=== PATIENT | female | born 1995 | race American Indian/Alaskan Native ===

== ENCOUNTER 2017-08-24 22:19 | Emergency (ER) | payer BC, MEDICAID ==
[2017-08-24 23:02] LABS: Basophils % (Auto) 0.7 % (0.0-1.8); Eosinophils % (Auto) 1.8 % (0.0-4.3); Hematocrit 43.4 % (30.3-42.9); Hemoglobin 14.4 gm/dl (10.1-14.3); Mean Corpuscular HGB Conc 33 % (30-34); Mean Corpuscular Hemoglobin 28 pg (28-32); Mean Corpuscular Volume 84 fl (79-97); Platelet Count 233 K/mm3 (140-440); Red Blood Count 5.19 M/mm3 (3.65-5.03); Red Cell Distribution Width 14.1 % (13.2-15.2); White Blood Count 8.1 K/mm3 (4.5-11.0)
[2017-08-24 23:22] LABS: Anion Gap 17 mmol/L; BUN/Creatinine Ratio 17; Blood Urea Nitrogen 12 mg/dL (7-17); Calcium 9.7 mg/dL (8.4-10.2); Carbon Dioxide 25 mmol/L (22-30); Chloride 105.1 mmol/L (98-107); Glucose 93 mg/dL (65-100); Potassium 4.3 mmol/L (3.6-5.0); Sodium 143 mmol/L (137-145)
[2017-08-24 23:35] LABS: Bacteria,Urine 1+ /HPF (Negative); Bilirubin,Urine NEG (Negative); Blood,Urine NEG (Negative); Ketones,Urine NEG (Negative); Leukocyte Esterase,Urine LG (Negative); Mucus,Urine FEW /HPF; Nitrite,Urine NEG (Negative); Protein,Urine <15 mg/dL mg/dL (Negative); Urobilinogen,Urine < 2.0 mg/dL (<2.0)
--- NOTE | 2017-08-25 02:56 | Emergency Department Report ---
HPI - General Chief Complaint: Chest Pain Time Seen by Provider: 08/25/17 01:41 - HPI HPI: Patient reports that she went to urgent care for back pain and they started her on ciprofloxacin after obtaining a urinalysis and results positive for urinary tract infection. She said she is on ciprofloxacin for 7 days and her lost dose will be Sunday which is 08/26/2017. She says she's been taking the medication twice a day but her back is still hurting. She denies any injury to her back. She is also complaining the chest pain located into mid chest area that feels sharp and 9 out of 10. Denies any radiation of chest pain. No previous episode of chest pain. Denies any shortness of breath. Denies any fever but reports chills. Denies any urinary burning frequency or urgency. Denies any vaginal discharge. Patient has history of high blood pressure and her blood pressure is 141/101 she said she was on blood pressure medication and past but her doctor took her off the medication because her blood pressure was fine. She denies any flank pain she said the pain is in her lower back on both sides. Denies any nausea or vomiting. Patient said that she had took ciprofloxacin and past and it made her broke out and that she is having a rash that started now ,with itchiness and she thinks it's from the ciprofloxacin that they gave her. This is not listed on her allergy list. Patient denies any history of heart problems. Denies any numbness or tickling to extremities. Denies any loss of bowel or bladder function. Nothing makes back pain better nothing makes it worse. She says she's been taking [id number] pain medication but it's not help in her pain. Patient is eating and drinking well. ED Past Medical Hx - Past Medical History Previous Medical History?: Yes Hx Hypertension: Yes - Surgical History Past Surgical History?: Yes Hx Cholecystectomy: Yes Additional Surgical History: tonsillectomy - Family History Family history: hypertension - Social History Smoking Status: Never Smoker Substance Use Type: None - Medications Home Medications: Home Medications Medication Instructions Recorded Confirmed Last Taken Type Hydrochlorothiazide [Hctz] 12.5 mg PO QDAY 06/11/13 11/06/13 11/06/13 06:30 History Ondansetron [Zofran] 4 mg PO Q6HR PRN #12 tablet 06/12/13 11/06/13 10/07/13 Rx Norethindrone AC-Eth Estradiol 1 tab PO DAILY 11/06/13 11/06/13 11/06/13 06:30 History [Microgestin] Ondansetron [Zofran Odt] 4 mg PO Q6H PRN #8 tab.rapdis 11/07/13 Unknown Rx Oxycodone HCl/Acetaminophen 1 each PO Q4-6H PRN #20 tablet 11/07/13 Unknown Rx [Percocet 10-325 mg] Acetaminophen/Codeine [Tylenol #3] 1 tab PO Q6H PRN #15 tab 02/02/16 Unknown Rx Cyclobenzaprine HCl [Flexeril 5 MG 5 mg PO Q8HR PRN #15 tablet 02/02/16 Unknown Rx TAB] metroNIDAZOLE [Flagyl] 500 mg PO Q12HR #14 tab 03/28/16 Unknown Rx Nitrofurantoin Monohyd/M-Cryst 100 mg PO Q12H 7 Days #14 capsule 08/25/17 Unknown Rx [Macrobid 100 mg Capsule] traMADol [Ultram] 50 mg PO Q6HR PRN 3 Days #12 tablet 08/25/17 Unknown Rx ED Review of Systems ROS: Stated complaint: CP/BACK PAIN Other details as noted in HPI Comment: All other systems reviewed and negative Constitutional: chills. denies: malaise, weakness Eyes: denies: eye pain, eye discharge ENT: denies: ear pain, throat pain, congestion Respiratory: no symptoms reported Cardiovascular: chest pain. denies: palpitations, dyspnea on exertion, orthopnea, edema, syncope, paroxysmal nocturnal dyspnea Gastrointestinal: denies: abdominal pain, nausea, vomiting, diarrhea, constipation Genitourinary: denies: urgency, dysuria, frequency, hematuria, discharge, abnormal menses, dyspareunia Musculoskeletal: back pain. denies: joint swelling, arthralgia, myalgia Skin: denies: rash Neurological: denies: headache, weakness, numbness, paresthesias, confusion, abnormal gait, vertigo Physical Exam - Physical Exam Vital Signs: Vital Signs 08/24/17 22:34 Temperature 99.1 F Pulse Rate 84 Respiratory 18 Rate Blood Pressure 141/101 O2 Sat by Pulse 97 Oximetry Vital Signs 08/24/17 08/25/17 22:34 03:22 Temperature 99.1 F Pulse Rate 84 Respiratory 18 18 Rate Blood Pressure 141/101 O2 Sat by Pulse 97 Oximetry Vital Signs 08/24/17 08/25/17 08/25/17 22:34 03:22 04:00 Temperature 99.1 F Pulse Rate 84 Respiratory 18 18 Rate Blood Pressure 141/101 Blood Pressure 138/90 [Left] O2 Sat by Pulse 97 Oximetry General: This is a 22-year-old female well-nourished well-developed in no acute distress. Physical Exam: Head: Normocephalic, atraumatic, no abrasion, no bruising and no contusion. Eyes: Biateral pupils equal and reactive to light, bilateral EOM intact.. Bilateral conjunctival and sclera without injection, normal accommodation. No nystagmus Ears: Bilateral TMs pearly painting, bilateral nasal mucosa normal without any drainage. No maxillary or frontal sinus tenderness. No mastoid bone tenderness. Bilateral tract is nontender to palpate Mouth: Moist, no pharyngeal exudate or erythema. Uvula is midline and tongue is normal. Oral airways patent. Neck: Supple, No Cervical adenopathy, full range of motion and no C-spine tenderness. No swelling or tracheal deviation normal reflexes Cardiovascular: S1, S2. Regular rate and rhythm. No murmur. Capillary refill is less then 3 seconds. Lungs: Clear to auscultate bilaterally. No rhonchi, wheezes or rales. Positive midsternal chest wall tenderness. No ecchymosis or erythema to chest wall. No crepitus. Abdomen: Soft, nontender to palpate in all quadrants. No guarding or rebound tenderness. Negative CVA tenderness bilaterally. No hernia, no mass. MSK: Strength 5/5 in all extremities. No joint deformity or crepitus. Normal inspection. Full range of motion to all extremities Extremities: No clubbing, cyanosis or edema. +2 pulses. No neurovascular compromise Skin: Clean, dry and intact. No rash or lesions. Neurological: GCS at 15, Pt is alert and oriented 3 speech is clear period. Bilateral hand suspender maker strong and equal. Normal gait. Negative Romberg and no pronator drift. Normal Reflexes. No motor or sensory deficit Back: No vertebral tenderness, no paraspinal tenderness. The bend over and touch his toes without any difficulties. Ambulates without any difficulties. Psych: Normal mood and behavior. ED Course Vital Signs 08/24/17 22:34 Temperature 99.1 F Pulse Rate 84 Respiratory 18 Rate Blood Pressure 141/101 O2 Sat by Pulse 97 Oximetry Vital Signs 08/24/17 08/25/17 08/25/17 22:34 03:22 04:00 Temperature 99.1 F Pulse Rate 84 Respiratory 18 18 Rate Blood Pressure 141/101 Blood Pressure 138/90 [Left] O2 Sat by Pulse 97 Oximetry - Reevaluation(s) Reevaluation #1: 08/25/17 03:56 Patient lab work revealed that she has urinary tract infection positive bacteria and positive white count positive leukocyte Estrace. Urine is also contaminated with epithelial cells. Reports that that urine is cloudy. Patient white count is normal and her hemoglobin is normal. Chemistry to include troponin is normal. Patient received hydrocodone 5/325 mg 2 tablets emergency room for back pain and chest wall pain. She received clindamycin 600 mg IM for urinary tract infection because she is allergic to penicillin. Patient also given Benadryl 50 mg by mouth for itching and. I discussed with her that she should not take Cipro or any floor, quinolones. ED Medical Decision Making - Lab Data Result diagrams: 08/24/17 22:48 08/24/17 22:48 Lab Results 08/24/17 08/24/17 08/24/17 Range/Units 22:48 22:48 23:11 WBC 8.1 (4.5-11.0) K/mm3 RBC 5.19 H (3.65-5.03) M/mm3 Hgb 14.4 H (10.1-14.3) gm/dl Hct 43.4 H (30.3-42.9) % MCV 84 (79-97) fl MCH 28 (28-32) pg MCHC 33 (30-34) % RDW 14.1 (13.2-15.2) % Plt Count 233 (140-440) K/mm3 Lymph % (Auto) 41.3 H (13.4-35.0) % [place] % (Auto) 5.4 (0.0-7.3) % Eos % (Auto) 1.8 (0.0-4.3) % Baso % (Auto) 0.7 (0.0-1.8) % Lymph # 3.3 (1.2-5.4) K/mm3 [place] # 0.4 (0.0-0.8) K/mm3 Eos # 0.1 (0.0-0.4) K/mm3 Baso # 0.1 (0.0-0.1) K/mm3 Seg Neutrophils % 50.8 (40.0-70.0) % Seg Neutrophils # 4.1 (1.8-7.7) K/mm3 Sodium 143 (137-145) mmol/L Potassium 4.3 (3.6-5.0) mmol/L Chloride 105.1 (98-107) mmol/L Carbon Dioxide 25 (22-30) mmol/L Anion Gap 17 mmol/L BUN 12 (7-17) mg/dL Creatinine 0.7 (0.7-1.2) mg/dL Estimated GFR > 60 ml/min BUN/Creatinine Ratio 17 % Glucose 93 (65-100) mg/dL Calcium 9.7 (8.4-10.2) mg/dL Troponin T < 0.010 (0.00-0.029) ng/mL Urine Color Yellow (Yellow) Urine Turbidity Slightly cloudy (Clear) Urine pH 6.0 (5.0-7.0) Ur Specific [place] 1.019 (1.003-1.030) Urine Protein <15 mg/dl (Negative) mg/dL Urine Glucose (UA) Neg (Negative) mg/dL Urine Ketones Neg (Negative) mg/dL Urine Blood Neg (Negative) Urine Nitrite Neg (Negative) Urine Bilirubin Neg (Negative) Urine Urobilinogen < 2.0 (<2.0) mg/dL Ur Leukocyte Esterase Lg (Negative) Urine WBC (Auto) 25.0 H (0.0-6.0) /HPF Urine RBC (Auto) 4.0 (0.0-6.0) /HPF U Epithel Cells (Auto) 14.0 H (0-13.0) /HPF Urine Bacteria (Auto) 1+ (Negative) /HPF Urine Mucus Few /HPF 08/25/17 Range/Units 01:06 WBC (4.5-11.0) K/mm3 RBC (3.65-5.03) M/mm3 Hgb (10.1-14.3) gm/dl Hct (30.3-42.9) % MCV (79-97) fl MCH (28-32) pg MCHC (30-34) % RDW (13.2-15.2) % Plt Count (140-440) K/mm3 Lymph % (Auto) (13.4-35.0) % [place] % (Auto) (0.0-7.3) % Eos % (Auto) (0.0-4.3) % Baso % (Auto) (0.0-1.8) % Lymph # (1.2-5.4) K/mm3 [place] # (0.0-0.8) K/mm3 Eos # (0.0-0.4) K/mm3 Baso # (0.0-0.1) K/mm3 Seg Neutrophils % (40.0-70.0) % Seg Neutrophils # (1.8-7.7) K/mm3 Sodium (137-145) mmol/L Potassium (3.6-5.0) mmol/L Chloride (98-107) mmol/L Carbon Dioxide (22-30) mmol/L Anion Gap mmol/L BUN (7-17) mg/dL Creatinine (0.7-1.2) mg/dL Estimated GFR ml/min BUN/Creatinine Ratio % Glucose (65-100) mg/dL Calcium (8.4-10.2) mg/dL Troponin T < 0.010 (0.00-0.029) ng/mL Urine Color (Yellow) Urine Turbidity (Clear) Urine pH (5.0-7.0) Ur Specific [place] (1.003-1.030) Urine Protein (Negative) mg/dL Urine Glucose (UA) (Negative) mg/dL Urine Ketones (Negative) mg/dL Urine Blood (Negative) Urine Nitrite (Negative) Urine Bilirubin (Negative) Urine Urobilinogen (<2.0) mg/dL Ur Leukocyte Esterase (Negative) Urine WBC (Auto) (0.0-6.0) /HPF Urine RBC (Auto) (0.0-6.0) /HPF U Epithel Cells (Auto) (0-13.0) /HPF Urine Bacteria (Auto) (Negative) /HPF Urine Mucus /HPF Urine culture sent and pending - EKG Data -: EKG Interpreted by Me (read by attending physician in ED) EKG shows normal: sinus rhythm (sinus rhythm at 70 bpm) Rate: normal - EKG Data Interpretation: no acute changes - Medical Decision Making ED course: Patient had complained of chest pain to mid chest area. She denies that she had any injuries. She is also complaining of lower back pain on both sides is having ongoing since she's been diagnosed with urinary tract infection this past Sunday. She says she was placed on ciprofloxacin and she doesn't think this working because she is still having back pain. She says she was treated at an urgent care clinic and they gave her Cipro to take twice a day for 7 days and she has been taking this medication and will be completed on . Patient said that she broke out into a rash previously when she took Cipro but she did not list it as an allergy and now complaining itching and thinks she has a rash on her face. Physical findings for clear face without any rash to skin. I discussed patient that she should list ciprofloxacin and other fluoroquinolones as allergy from now on. Patient urinalysis revealed that she has positive bacteria, positive white blood cells and large amount of leukocyte Estrace with cloudy urine. Patient did have epithelial cell in her urine which suggests contamination. She is not having any urinary burning frequency or urgency but she has back pain. Patient does not have any CVA tenderness and is not having any nausea or vomiting. She has low-grade temp of 99.1 in triage area. Patient white count is 8.1, chemistry to include troponin is normal, EKG sinus rhythm at [address] abnormalities. Patient with chest wall tenderness. I discussed patient her lab results and her EKG results and I told her that typically with tenderness to palpate the chest wall and given her age without any history of cardiac disease she is at low risk although she has hypertension. I discussed with her that her presentation with chest pain and based on my physical findings it is inflammation of chest wall which is costochondritis. I discussed patient that she needs to stop Cipro and I'll start her on Macrobid for urinary tract infection. Patient given Stites 5/ 325 mg 2 tablets in the emergency room for pain which relieved her pain, she was given clindamycin 600 mg IM for UTI and Benadryl 50 mg by mouth for itching into face. Patient says she felt better I discussed the patient that she needs to follow up with her primary care physician which she does have one on 2016 follow-up UTI and costochondritis. 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 Patient orally challenge and emergency room and drank 480 cc of cranberry juice without any nausea or vomiting. Patient Unlikely to have pyelonephritis at this time but I told her if she developed nausea vomiting, fever, flank pain, abdominal pain to return to the hospital [facility] and I also told her if her chest pain does not resolve before she gets to see her primary care physician and she develop shortness of breath with that she needs to come back to the emergency room. Based on PERC rule patient has 0 risk for pulmonary embolism as she is not on control, no swelling to extremities, no recent long distance travel by car ear pain, no chronic diseases or recent surgery or immobilization. No shortness of breath. She is not tachycardic and her O2 sats normal. Patient has no history of blood clots or no family history of blood clots and no history of clotting disorder. Patient was nondistended discharge instruction and diagnosis along with treatment plan and discharged home with her family in stable condition with prescription for Macrobid, Zyrtec and naproxen. Critical care attestation.: If time is entered above; I have spent that time in minutes in the direct care of this critically ill patient, excluding procedure time. ED Disposition Clinical Impression: Acute cystitis without hematuria, Pruritus, Costochondritis, acute Back pain Qualifiers: Back pain location: low back pain Chronicity: unspecified Back pain laterality : bilateral Sciatica presence: without sciatica Qualified Code(s): M54.5 - Low back pain Disposition: - TO HOME OR SELFCARE Is pt being admited?: No Does the pt Need Aspirin: No Condition: Stable Instructions: Urinary Tract Infection in Women (ED), Costochondritis (ED), Acute Low Back Pain (ED) Additional Instructions: Please increase your fluid intake to 2-3 L of water and cranberry juice per day. Please take antibiotic as prescribed Stop ciprofloxacin Follow up with primary care physician on 08/27/2017 Take Macrobid for urinary tract infection Take ultram as needed for inflammation of chest wall and back pain. If you develop, nausea and vomiting, fever, increasing back pain, urinary burning frequency or urgency, inability to keep fluid down due to vomiting, abdominal pain please return to the emergency room D[facility] otherwise follow up with primary care physician on Sunday blood pressure was slightly elevated today so keep a lot of the blood pressure and take to primary care physician for evaluation. Prescriptions: Nitrofurantoin Monohyd/M-Cryst [Macrobid 100 mg Capsule] 100 mg PO Q12H 7 Days # 14 capsule traMADol [Ultram] 50 mg PO Q6HR PRN 3 Days #12 tablet PRN Reason: Pain Referrals: ANDREI WILSON MD [Primary Care Provider] - 08/27/17 Forms: Accompanied Note, Work/School Release Form(ED)
[2017-08-25] MEDS ORDERED: BENADRYL PO ONE (02:58)
[2017-08-25] MEDS ORDERED: CLEOCIN IM ONE (02:58)
[2017-08-25] MEDS ORDERED: NORCO 5/325 PO ONE (02:58)
[2017-08-25 05:26] VITALS: BP 148/92
== END 2017-08-25 04:45 | disposition home or self-care (01) ==
LOC: ED 22:19
DX: M94.0 Chondrocostal junction syndrome [Tietze] (principal); N30.00 Acute cystitis without hematuria; L29.9 Pruritus, unspecified; M54.5 Low back pain; I10 Essential (primary) hypertension
CPT/HCPCS: 36415; 80048; 81001; 84484; 85025; 87086; 93005; 93010; 96372

== ENCOUNTER 2018-05-01 07:52 | Emergency (ER) | payer MEDICAID ==
[2018-05-01 08:37] LABS: Basophils # (Auto) 0.1 K/mm3 (0.0-0.1); Basophils % (Auto) 0.4 % (0.0-1.8); Eosinophils # (Auto) 0.1 K/mm3 (0.0-0.4); Hematocrit 39.6 % (30.3-42.9); Hemoglobin 13.4 gm/dl (10.1-14.3); Lymphocytes # (Auto) 1.4 K/mm3 (1.2-5.4); Lymphocytes % (Auto) 11.9 % (13.4-35.0); Mean Corpuscular HGB Conc 34 % (30-34); Mean Corpuscular Hemoglobin 28 pg (28-32); Mean Corpuscular Volume 83 fl (79-97); Monocytes # (Auto) 0.5 K/mm3 (0.0-0.8); Monocytes % (Auto) 4.7 % (0.0-7.3); Platelet Count 204 K/mm3 (140-440); Red Blood Count 4.75 M/mm3 (3.65-5.03); Red Cell Distribution Width 14.3 % (13.2-15.2)
[2018-05-01 08:56] LABS: BUN/Creatinine Ratio 10; Blood Urea Nitrogen 5 mg/dL (7-17); Calcium 9.6 mg/dL (8.4-10.2); Hemolysis Index 1
[2018-05-01] MEDS ORDERED: NACL 0.9% 1000 ML 1,000 ML IV ONE (10:23)
[2018-05-01] MEDS ORDERED: ZOFRAN IV ONE (10:23)
[2018-05-01] MEDS ORDERED: TYLENOL PO ONE (10:24)
[2018-05-01] MEDS ORDERED: ZITHROMAX 500 MG in NACL 0.9% 250ML 250 ML IV ONE (10:24)
--- NOTE | 2018-05-01 10:45 | Emergency Department Report ---
- General Chief Complaint: Chest Pain Stated Complaint: CHEST PAIN Time Seen by Provider: 05/01/18 09:59 Source: patient Mode of arrival: Ambulatory Limitations: No Limitations - History of Present Illness Initial Comments: 22-year-old female who denies a past medical history hypertension for this hospital complains of cough, nasal congestion, and generalized body aches 2 days. Cough is productive of yellow sputum. The past week patient has also been having a sore throat and intermittent nausea vomiting with very little by mouth tolerance. Patient complains of constant 9/10 throbbing sternal chest pain that is worse with palpation, movement, inspiration, and coughing. Patient denies calf enderness, recent travel, unilateral leg edema, history of PE/DVT, or sick contacts. Patient has not documented a fever because she did not check her temperature but intermittent chills reported. Patient has shortness of breath only with lying supine in the bed and denies dyspnea on exertion. She has received care with Dr. Bairon Jacobs but she has not yet received an ultrasound during this . She denies abdominal pain or vaginal bleeding. - Related Data Home Medications Medication Instructions Recorded Confirmed Last Taken Hydrochlorothiazide [Hctz] 12.5 mg PO QDAY 06/11/13 11/06/13 11/06/13 06:30 Norethindrone AC-Eth Estradiol 1 tab PO DAILY 11/06/13 11/06/13 11/06/13 06:30 [Microgestin] Previous Rx's Medication Instructions Recorded Last Taken Type Ondansetron [Zofran Odt] 4 mg PO Q6H PRN #8 tab.rapdis 11/07/13 Unknown Rx Oxycodone HCl/Acetaminophen 1 each PO Q4-6H PRN #20 tablet 11/07/13 Unknown Rx [Percocet 10-325 mg] Acetaminophen/Codeine [Tylenol #3] 1 tab PO Q6H PRN #15 tab 02/02/16 Unknown Rx Cyclobenzaprine HCl [Flexeril 5 MG 5 mg PO Q8HR PRN #15 tablet 02/02/16 Unknown Rx TAB] metroNIDAZOLE [Flagyl] 500 mg PO Q12HR #14 tab 03/28/16 Unknown Rx Nitrofurantoin Monohyd/M-Cryst 100 mg PO Q12H 7 Days #14 capsule 08/25/17 Unknown Rx [Macrobid 100 mg Capsule] traMADol [Ultram] 50 mg PO Q6HR PRN 3 Days #12 tablet 08/25/17 Unknown Rx Azithromycin [Zithromax Z-AHSAN] 1 dose PO DAILY 5 Days tab 05/01/18 Unknown Rx Promethazine [Phenergan TAB] 25 mg PO Q6HR PRN #20 tab 05/01/18 Unknown Rx Sodium Chloride [Saline Nasal 1 - 2 ml NS PRN PRN #1 bottle 05/01/18 Unknown Rx [place]] guaiFENesin [Guaifenesin] 400 mg PO Q6HR PRN #20 tablet 05/01/18 Unknown Rx Allergies Allergy/AdvReac Type Severity Reaction Status Date / Time ibuprofen [From Motrin] Allergy Swelling Verified 03/27/16 15:33 Penicillins Allergy Swelling Verified 03/27/16 15:33 Sulfa (Sulfonamide Allergy Hives Verified 03/27/16 15:33 Antibiotics) ED Review of Systems ROS: Stated complaint: CHEST PAIN Other details as noted in HPI Comment: All other systems reviewed and negative ED Past Medical Hx - Past Medical History Previous Medical History?: Yes Hx Hypertension: Yes - Surgical History Past Surgical History?: Yes Hx Cholecystectomy: Yes Additional Surgical History: tonsillectomy - Social History Smoking Status: Never Smoker Substance Use Type: None - Medications Home Medications: Home Medications Medication Instructions Recorded Confirmed Last Taken Type Hydrochlorothiazide [Hctz] 12.5 mg PO QDAY 06/11/13 11/06/13 11/06/13 06:30 History Norethindrone AC-Eth Estradiol 1 tab PO DAILY 11/06/13 11/06/13 11/06/13 06:30 History [Microgestin] Ondansetron [Zofran Odt] 4 mg PO Q6H PRN #8 tab.rapdis 11/07/13 Unknown Rx Oxycodone HCl/Acetaminophen 1 each PO Q4-6H PRN #20 tablet 11/07/13 Unknown Rx [Percocet 10-325 mg] Acetaminophen/Codeine [Tylenol #3] 1 tab PO Q6H PRN #15 tab 02/02/16 Unknown Rx Cyclobenzaprine HCl [Flexeril 5 MG 5 mg PO Q8HR PRN #15 tablet 02/02/16 Unknown Rx TAB] metroNIDAZOLE [Flagyl] 500 mg PO Q12HR #14 tab 03/28/16 Unknown Rx Nitrofurantoin Monohyd/M-Cryst 100 mg PO Q12H 7 Days #14 capsule 08/25/17 Unknown Rx [Macrobid 100 mg Capsule] traMADol [Ultram] 50 mg PO Q6HR PRN 3 Days #12 tablet 08/25/17 Unknown Rx Azithromycin [Zithromax Z-AHSAN] 1 dose PO DAILY 5 Days tab 05/01/18 Unknown Rx Promethazine [Phenergan TAB] 25 mg PO Q6HR PRN #20 tab 05/01/18 Unknown Rx Sodium Chloride [Saline Nasal 1 - 2 ml NS PRN PRN #1 bottle 05/01/18 Unknown Rx [place]] guaiFENesin [Guaifenesin] 400 mg PO Q6HR PRN #20 tablet 05/01/18 Unknown Rx ED Physical Exam - General Limitations: No Limitations - Other Other exam information: General: No limitations, patient is alert in no acute distress Head exam: Atraumatic, normocephalic Eyes exam: Normal appearance, pupils equal reactive to light, extraocular movements intact ENT: Moist mucous membrane, normal oropharynx, no exudates, edema, or to no lymphadenopathy. Positive nasal congestion Neck exam: Normal inspection, full range of motion, no meningismus nontender Respiratory exam: Clear to auscultation bilateral, no wheezes, rales, crackles Cardiovascular: Normal rate and rhythm, normal heart sounds. Reproducible sternal chest wall tenderness Abdomen: Soft, nondistended, and nontender, with normal bowel sounds, no rebound, or guarding Extremity: Full range of motion normal inspection no deformity Back: Normal Inspection, full range of motion, no tenderness Neurologic: Alert, oriented x3, cranial nerves intact, no motor or sensory deficit Psychiatric: normal affect, normal mood Skin: Warm, dry, intact ED Course Vital Signs 05/01/18 05/01/18 05/01/18 07:55 08:34 09:24 Temperature 99 F Pulse Rate 116 H 96 H Respiratory 18 20 20 Rate Blood Pressure 153/95 Blood Pressure 121/74 [Left] O2 Sat by Pulse 98 100 Oximetry - Reevaluation(s) Reevaluation #1: 05/01/18 12:43 Patient initially tachycardic but resolved spontaneously. Orthostatics negative. - Consultations Consultation #1: 05/01/[address] Jacobs. Follow-up will be encouraged. ED Medical Decision Making - Lab Data Result diagrams: 05/01/18 08:10 05/01/18 08:10 Lab Results 05/01/18 05/01/18 05/01/18 Range/Units 08:10 08:10 08:10 WBC 11.7 H (4.5-11.0) K/mm3 RBC 4.75 (3.65-5.03) M/mm3 Hgb 13.4 (10.1-14.3) gm/dl Hct 39.6 (30.3-42.9) % MCV 83 (79-97) fl MCH 28 (28-32) pg MCHC 34 (30-34) % RDW 14.3 (13.2-15.2) % Plt Count 204 (140-440) K/mm3 Lymph % (Auto) 11.9 L (13.4-35.0) % [place] % (Auto) 4.7 (0.0-7.3) % Eos % (Auto) 1.0 (0.0-4.3) % Baso % (Auto) 0.4 (0.0-1.8) % Lymph # 1.4 (1.2-5.4) K/mm3 [place] # 0.5 (0.0-0.8) K/mm3 Eos # 0.1 (0.0-0.4) K/mm3 Baso # 0.1 (0.0-0.1) K/mm3 Seg Neutrophils % 82.0 H (40.0-70.0) % Seg Neutrophils # 9.6 H (1.8-7.7) K/mm3 Sodium 140 (137-145) mmol/L Potassium 4.0 (3.6-5.0) mmol/L Chloride 101.6 (98-107) mmol/L Carbon Dioxide 21 L (22-30) mmol/L Anion Gap 21 mmol/L BUN 5 L (7-17) mg/dL Creatinine 0.5 L (0.7-1.2) mg/dL Estimated GFR > 60 ml/min BUN/Creatinine Ratio 10 % Glucose 98 (65-100) mg/dL Calcium 9.6 (8.4-10.2) mg/dL Troponin T < 0.010 (0.00-0.029) ng/mL HCG, Qual Positive (Negative) Group A Strep Rapid (Negative) 05/01/18 Range/Units 10:20 WBC (4.5-11.0) K/mm3 RBC (3.65-5.03) M/mm3 Hgb (10.1-14.3) gm/dl Hct (30.3-42.9) % MCV (79-97) fl MCH (28-32) pg MCHC (30-34) % RDW (13.2-15.2) % Plt Count (140-440) K/mm3 Lymph % (Auto) (13.4-35.0) % [place] % (Auto) (0.0-7.3) % Eos % (Auto) (0.0-4.3) % Baso % (Auto) (0.0-1.8) % Lymph # (1.2-5.4) K/mm3 [place] # (0.0-0.8) K/mm3 Eos # (0.0-0.4) K/mm3 Baso # (0.0-0.1) K/mm3 Seg Neutrophils % (40.0-70.0) % Seg Neutrophils # (1.8-7.7) K/mm3 Sodium (137-145) mmol/L Potassium (3.6-5.0) mmol/L Chloride (98-107) mmol/L Carbon Dioxide (22-30) mmol/L Anion Gap mmol/L BUN (7-17) mg/dL Creatinine (0.7-1.2) mg/dL Estimated GFR ml/min BUN/Creatinine Ratio % Glucose (65-100) mg/dL Calcium (8.4-10.2) mg/dL Troponin T (0.00-0.029) ng/mL HCG, Qual (Negative) Group A Strep Rapid Negative (Negative) - EKG Data -: EKG Interpreted by [place] EKG shows normal: sinus rhythm (qrs 69), axis (qrs 69), QRS complexes (qrsd 86) , ST-T waves (no stemi/t inv) Rate: tachycardia (107) - Medical Decision Making Patient says is improved with eating treatment. Patient will be up. She with azithromycin due to her symptoms. X-ray not performed at this time isince lungs ctab, patient is , and O2 saturation is normal. Initial tachycardia resolved spontaneously even prior to this. Case discussed with Dr. Bairon Jacobs who agrees with management and will follow up. - Differential Diagnosis viral syndrome, pneumonia, bronchitis, sinusitis, pharyngitis Critical Care Time: No Critical care attestation.: If time is entered above; I have spent that time in minutes in the direct care of this critically ill patient, excluding procedure time. ED Disposition Clinical Impression: Acute bronchitis, Viral syndrome, , Vomiting Disposition: TO HOME OR SELFCARE Is pt being admited?: No Does the pt Need Aspirin: No Condition: Stable Instructions: Acute Bronchitis (ED), Viral Syndrome (ED), Acute Nausea and Vomiting (ED) Additional Instructions: Take the medication as prescribed. Follow-up with your doctor. Return if symptoms worsen as indicated by your discharge instructions. Prescriptions: Azithromycin [Zithromax Z-AHSAN] 1 dose PO DAILY 5 Days tab guaiFENesin [Guaifenesin] 400 mg PO Q6HR PRN #20 tablet PRN Reason: Cough Promethazine [Phenergan TAB] 25 mg PO Q6HR PRN #20 tab PRN Reason: Nausea Sodium Chloride [Saline Nasal [place]] 1 - 2 ml NS PRN PRN #1 bottle PRN Reason: Nasal Congestion Referrals: PRIMARY CARE, [Primary Care Provider] - 3-5 Days BAIRON JACOBS MD [Staff Physician] - 3-5 Days Time of Disposition: 12:46
[2018-05-01 12:49] VITALS: BP 126/86
== END 2018-05-01 13:10 | disposition home or self-care (01) ==
LOC: ED 07:52
DX: O26.899 Other specified pregnancy related conditions, unspecified trimester (principal); J20.9 Acute bronchitis, unspecified; B34.9 Viral infection, unspecified; I10 Essential (primary) hypertension; Z90.49 Acquired absence of other specified parts of digestive tract; Z88.6 Allergy status to analgesic agent; Z3A.00 Weeks of gestation of pregnancy not specified; Z88.0 Allergy status to penicillin; Z88.2 Allergy status to sulfonamides
CPT/HCPCS: 36415; 80048; 84484; 84703; 85025; 87116; 87430; 93005; 93010; 96365; 96366; 96375; 99284; J0456; J2405; J7030; J7050

== ENCOUNTER 2018-06-13 19:43 | Emergency (ER) | payer MEDICAID ==
[2018-06-13 19:08] LABS: Basophils # (Auto) 0.1 K/mm3 (0.0-0.1); Basophils % (Auto) 0.6 % (0.0-1.8); Eosinophils # (Auto) 0.1 K/mm3 (0.0-0.4); Eosinophils % (Auto) 1.1 % (0.0-4.3); Hematocrit 38.3 % (30.3-42.9); Hemoglobin 13.1 gm/dl (10.1-14.3); Lymphocytes # (Auto) 2.3 K/mm3 (1.2-5.4); Lymphocytes % (Auto) 23.7 % (13.4-35.0); Mean Corpuscular HGB Conc 34 % (30-34); Mean Corpuscular Hemoglobin 29 pg (28-32); Mean Corpuscular Volume 84 fl (79-97); Monocytes # (Auto) 0.6 K/mm3 (0.0-0.8); Monocytes % (Auto) 6.2 % (0.0-7.3); Platelet Count 199 K/mm3 (140-440); Red Blood Count 4.54 M/mm3 (3.65-5.03); Red Cell Distribution Width 14.4 % (13.2-15.2)
[2018-06-13 19:46] LABS: BUN/Creatinine Ratio 12; Blood Urea Nitrogen 7 mg/dL (7-17); Calcium 9.7 mg/dL (8.4-10.2); Hemolysis Index 0
[2018-06-13] MEDS ORDERED: TYLENOL PO ONE (20:55)
--- NOTE | 2018-06-13 21:05 | Emergency Department Report ---
ED Chest Pain HPI - General Chief Complaint: Chest Pain Stated Complaint: HEART RACING/CHEST PAINS Time Seen by Provider: 06/13/18 20:33 Source: patient Mode of arrival: Ambulatory Limitations: No Limitations - History of Present Illness Initial Comments: 22-year-old female presents to the hospital today she is 5 months complaining of left upper chest pain since 9 AM. Pain is throbbing, constant, worse with palpation and movement. Mild shortness of breath reported. She denies fever, cough, calf tenderness, or leg edema. LMP is supportive area patient has received care. [employer] Dr. Bairon Jacobs. LMP is February 12 with a calculated gestational age of 17 weeks and 3 days. Patient complaints of abdominal pressure and and contraction feeling that started since being in the ER and waiting to be evaluated. No complaints of dysuria, vaginal bleeding, or fever. This patient's second . Patient presents with elevated blood pressure and states that she developed preeclampsia requiring delivery at the end of her first but was not taking antihypertensives prior to delivery. Severity scale (0 -10): 7 - Related Data Home Medications Medication Instructions Recorded Confirmed Last Taken hydroCHLOROthiazide [Hctz] 12.5 mg PO QDAY 06/11/13 11/06/13 11/06/13 06:30 Norethindrone AC-Eth Estradiol 1 tab PO DAILY 11/06/13 11/06/13 11/06/13 06:30 [Microgestin] Previous Rx's Medication Instructions Recorded Last Taken Type Ondansetron [Zofran Odt] 4 mg PO Q6H PRN #8 tab.rapdis 11/07/13 Unknown Rx Oxycodone HCl/Acetaminophen 1 each PO Q4-6H PRN #20 tablet 11/07/13 Unknown Rx [Percocet 10-325 mg] Acetaminophen/Codeine [Tylenol #3] 1 tab PO Q6H PRN #15 tab 02/02/16 Unknown Rx Cyclobenzaprine HCl [Flexeril 5 MG 5 mg PO Q8HR PRN #15 tablet 02/02/16 Unknown Rx TAB] metroNIDAZOLE [Flagyl] 500 mg PO Q12HR #14 tab 03/28/16 Unknown Rx Nitrofurantoin Monohyd/M-Cryst 100 mg PO Q12H 7 Days #14 capsule 08/25/17 Unknown Rx [Macrobid 100 mg Capsule] traMADol [Ultram] 50 mg PO Q6HR PRN 3 Days #12 tablet 08/25/17 Unknown Rx Azithromycin [Zithromax Z-AHSAN] 1 dose PO DAILY 5 Days tab 05/01/18 Unknown Rx Promethazine [Phenergan TAB] 25 mg PO Q6HR PRN #20 tab 05/01/18 Unknown Rx Sodium Chloride [Saline Nasal 1 - 2 ml NS PRN PRN #1 bottle 05/01/18 Unknown Rx [place]] guaiFENesin [Guaifenesin] 400 mg PO Q6HR PRN #20 tablet 05/01/18 Unknown Rx Labetalol [Normodyne TAB] 100 mg PO BID #60 tablet 06/13/18 Unknown Rx Allergies Allergy/AdvReac Type Severity Reaction Status Date / Time ibuprofen [From Motrin] Allergy Swelling Verified 03/27/16 15:33 Penicillins Allergy Swelling Verified 03/27/16 15:33 Sulfa (Sulfonamide Allergy Hives Verified 03/27/16 15:33 Antibiotics) Heart Score - HEART Score History: Slightly suspicious EKG: Normal Age: < 45 Risk factors: No known risk factors Troponin: < normal limit HEART Score: 0 ED Review of Systems ROS: Stated complaint: HEART RACING/CHEST PAINS Other details as noted in HPI Comment: All other systems reviewed and negative ED Past Medical Hx - Past Medical History Hx Hypertension: Yes - Surgical History Hx Cholecystectomy: Yes Additional Surgical History: tonsillectomy - Social History Smoking Status: Never Smoker Substance Use Type: None - Medications Home Medications: Home Medications Medication Instructions Recorded Confirmed Last Taken Type hydroCHLOROthiazide [Hctz] 12.5 mg PO QDAY 06/11/13 11/06/13 11/06/13 06:30 History Norethindrone AC-Eth Estradiol 1 tab PO DAILY 11/06/13 11/06/13 11/06/13 06:30 History [Microgestin] Ondansetron [Zofran Odt] 4 mg PO Q6H PRN #8 tab.rapdis 11/07/13 Unknown Rx Oxycodone HCl/Acetaminophen 1 each PO Q4-6H PRN #20 tablet 11/07/13 Unknown Rx [Percocet 10-325 mg] Acetaminophen/Codeine [Tylenol #3] 1 tab PO Q6H PRN #15 tab 02/02/16 Unknown Rx Cyclobenzaprine HCl [Flexeril 5 MG 5 mg PO Q8HR PRN #15 tablet 02/02/16 Unknown Rx TAB] metroNIDAZOLE [Flagyl] 500 mg PO Q12HR #14 tab 03/28/16 Unknown Rx Nitrofurantoin Monohyd/M-Cryst 100 mg PO Q12H 7 Days #14 capsule 08/25/17 Unknown Rx [Macrobid 100 mg Capsule] traMADol [Ultram] 50 mg PO Q6HR PRN 3 Days #12 tablet 08/25/17 Unknown Rx Azithromycin [Zithromax Z-AHSAN] 1 dose PO DAILY 5 Days tab 05/01/18 Unknown Rx Promethazine [Phenergan TAB] 25 mg PO Q6HR PRN #20 tab 05/01/18 Unknown Rx Sodium Chloride [Saline Nasal 1 - 2 ml NS PRN PRN #1 bottle 05/01/18 Unknown Rx [place]] guaiFENesin [Guaifenesin] 400 mg PO Q6HR PRN #20 tablet 05/01/18 Unknown Rx Labetalol [Normodyne TAB] 100 mg PO BID #60 tablet 06/13/18 Unknown Rx ED Physical Exam - General Limitations: No Limitations - Other Other exam information: General: No limitations, patient is alert in no acute distress Head exam: Atraumatic, normocephalic Eyes exam: Normal appearance, ENT: Moist mucous membrane, normal oropharynx Neck exam: Normal inspection, full range of motion, no meningismus nontender Respiratory exam: Clear to auscultation bilateral, no wheezes, rales, crackles Cardiovascular: Normal rate and rhythm, normal heart sounds Abdomen: Soft, nondistended, abdomen, mild suprapubic tenderness, with normal bowel sounds, no rebound, or guarding Extremity: Full range of motion normal inspection no deformity, no edema, no calf tenderness Back: Normal Inspection, full range of motion, no tenderness Neurologic: Alert, oriented x3, cranial nerves intact, no motor or sensory deficit Psychiatric: normal affect, normal mood Skin: Warm, dry, intact ED Course Vital Signs 06/13/18 06/13/18 06/13/18 18:37 21:00 21:23 Temperature 98.2 F 98.9 F Pulse Rate 88 74 Respiratory 16 18 Rate Blood Pressure 150/86 146/101 Blood Pressure 146/101 [Right] O2 Sat by Pulse 97 99 Oximetry 06/13/18 22:54 Temperature 98.7 F Pulse Rate 70 Respiratory 16 Rate Blood Pressure Blood Pressure 136/92 [Right] O2 Sat by Pulse 100 Oximetry - Consultations Consultation #1: 06/13/18 21:[address] Bairon Jacobs. Ultrasound will be performed to determine her gestation age. Labetalol will be started for blood pressure. UA pending. Will call back with results VICTOR HUGO score - Victor Hugo Score Age > 65: (0) No Aspirin use within the Past 7 Days: (0) No 3 or more CAD Risk Factors: (0) No 2 or more Angina events in past 24 hrs: (0) No Known CAD with more than 50% Stenosis: (0) No Elevated Cardiac Markers: (0) No ST Deviation Greater than 0.5mm: (0) No VICTOR HUGO Score: 0 ED Medical Decision Making - Lab Data Result diagrams: 06/13/18 18:49 06/13/18 18:49 Lab Results 06/13/18 06/13/18 06/13/18 Range/Units 18:49 18:49 21:20 WBC 9.7 (4.5-11.0) K/mm3 RBC 4.54 (3.65-5.03) M/mm3 Hgb 13.1 (10.1-14.3) gm/dl Hct 38.3 (30.3-42.9) % MCV 84 (79-97) fl MCH 29 (28-32) pg MCHC 34 (30-34) % RDW 14.4 (13.2-15.2) % Plt Count 199 (140-440) K/mm3 Lymph % (Auto) 23.7 (13.4-35.0) % [place] % (Auto) 6.2 (0.0-7.3) % Eos % (Auto) 1.1 (0.0-4.3) % Baso % (Auto) 0.6 (0.0-1.8) % Lymph # 2.3 (1.2-5.4) K/mm3 [place] # 0.6 (0.0-0.8) K/mm3 Eos # 0.1 (0.0-0.4) K/mm3 Baso # 0.1 (0.0-0.1) K/mm3 Seg Neutrophils % 68.4 (40.0-70.0) % Seg Neutrophils # 6.6 (1.8-7.7) K/mm3 Sodium 140 (137-145) mmol/L Potassium 4.3 (3.6-5.0) mmol/L Chloride 104.6 (98-107) mmol/L Carbon Dioxide 24 (22-30) mmol/L Anion Gap 16 mmol/L BUN 7 (7-17) mg/dL Creatinine 0.6 L (0.7-1.2) mg/dL Estimated GFR > 60 ml/min BUN/Creatinine Ratio 12 % Glucose 90 (65-100) mg/dL Calcium 9.7 (8.4-10.2) mg/dL Troponin T < 0.010 (0.00-0.029) ng/mL Urine Color Yellow (Yellow) Urine Turbidity Clear (Clear) Urine pH 6.0 (5.0-7.0) Ur Specific [place] 1.008 (1.003-1.030) Urine Protein <15 mg/dl (Negative) mg/dL Urine Glucose (UA) Neg (Negative) mg/dL Urine Ketones Neg (Negative) mg/dL Urine Blood Neg (Negative) Urine Nitrite Neg (Negative) Urine Bilirubin Neg (Negative) Urine Urobilinogen 4.0 (<2.0) mg/dL Ur Leukocyte Esterase Sm (Negative) Urine WBC (Auto) 1.0 (0.0-6.0) /HPF Urine RBC (Auto) 1.0 (0.0-6.0) /HPF U Epithel Cells (Auto) 2.0 (0-13.0) /HPF Urine Bacteria (Auto) 1+ (Negative) /HPF - EKG Data -: EKG Interpreted by [place] EKG shows normal: sinus rhythm, axis (qrs 56), QRS complexes (qrsd 90), ST-T waves (no stemi/t inv) Rate: normal (82) - EKG Data When compared to previous EKG there are: no significant change - Radiology Data Radiology results: report reviewed FINAL REPORT PROCEDURE: US OB gt; = 14 WEEKS FETUS TECHNIQUE: Real-time transabdominal sonography of the uterus, placenta, amniotic fluid, adnexa, and fetus was performed with image documentation. Measurements were obtained to determine age/size. M-mode Doppler was used to document heartbeat. CPT 80353 HISTORY: abd pain COMPARISON: No prior studies are available for comparison. FINDINGS: ADDITIONAL GESTATION: None. GENERAL: IUP: Single living intrauterine . Position: Cephalic Placental position: Anterior, without previa. Amniotic fluid volume: Normal. MATERNAL: Uterus: Within normal limits. Cervical length: 4 cm. Internal Os: Closed. FETUS: Heart rate and rhythm: 153 beats per minute, regular anatomic survey: Normal. MEASUREMENTS: BPD: 3.6 centimeters corresponding to 17 weeks and 1 day HC: 14.1 centimeters corresponding to 17 weeks and 3 days AC: 11.8 centimeters corresponding to 17 weeks and 4 days FL: 2.39 centimeters corresponding to 17 weeks and 1 day Mean Gestational Age (composite criteria): 17 weeks and 2 days Ratio biometry: Normal. Estimated Weight: 193 grams grams. Estimated Due Date 11/19/2018 IMPRESSION: Single intrauterine gestation at 17 weeks and 2 days. Estimated due date: 11/19/2018. - Medical Decision Making Chest pain Reproducible on palpation No respiratory distress, clear breath sounds, and normal pulse ox EKG normal, troponin negative No DVT symptoms Treated with Tylenol for musculoskeletal pain Abdominal pain Pressure started after ED arrival UA negative Ultrasound shows normal 17 week 2 day gestation Hypertension History of hypertension and preeclampsia prior to last delivery Labetalol given in ED for -induced hypertension with improvement Labetalol will be continued pt informed of signs of preeclampsia (after 20 weeks) and states she is familiar due to her previous episode - Differential Diagnosis costochondritis, PE, UTI, hypertension, contractions Critical Care Time: No Critical care attestation.: If time is entered above; I have spent that time in minutes in the direct care of this critically ill patient, excluding procedure time. ED Disposition Clinical Impression: Chest wall pain, induced hypertension, 17 weeks gestation of Disposition: DC-01 TO HOME OR SELFCARE Is pt being admited?: No Does the pt Need Aspirin: No Condition: Stable Instructions: Hypertension (ED), (ED), Costochondritis (ED) Additional Instructions: Take the medication as prescribed. Follow up with your doctor. Return if symptoms worsen as indicated by your discharge instructions Prescriptions: Labetalol [Normodyne TAB] 100 mg PO BID #60 tablet Referrals: BAIRON JACOBS MD [Primary Care Provider] - 3-5 Days Time of Disposition: 23:08
[2018-06-13] MEDS ORDERED: NORMODYNE PO ONE (21:15)
[2018-06-13 21:41] LABS: Bacteria,Urine 1+ /HPF (Negative); Bilirubin,Urine NEG (Negative); Blood,Urine NEG (Negative); Color,Urine Yellow (Yellow); Protein,Urine <15 mg/dL mg/dL (Negative)
--- NOTE | 2018-06-13 22:19 | Ultrasound Report ---
FINAL REPORT PROCEDURE: US OB > = 14 WEEKS FETUS TECHNIQUE: Real-time transabdominal sonography of the uterus, placenta, amniotic fluid, adnexa, and fetus was performed with image documentation. Measurements were obtained to determine age/size. M-mode Doppler was used to document heartbeat. CPT 20116 HISTORY: abd pain COMPARISON: No prior studies are available for comparison. FINDINGS: ADDITIONAL GESTATION: None. GENERAL: IUP: Single living intrauterine . Position: Cephalic Placental position: Anterior, without previa. Amniotic fluid volume: Normal. MATERNAL: Uterus: Within normal limits. Cervical length: 4 cm. Internal Os: Closed. FETUS: Heart rate and rhythm: 153 beats per minute, regular anatomic survey: Normal. MEASUREMENTS: BPD: 3.6 centimeters corresponding to 17 weeks and 1 day HC: 14.1 centimeters corresponding to 17 weeks and 3 days AC: 11.8 centimeters corresponding to 17 weeks and 4 days FL: 2.39 centimeters corresponding to 17 weeks and 1 day Mean Gestational Age (composite criteria): 17 weeks and 2 days Ratio biometry: Normal. Estimated Weight: 193 grams grams. Estimated Due Date 11/19/2018 IMPRESSION: Single intrauterine gestation at 17 weeks and 2 days. Estimated due date: 11/19/2018.
[2018-06-13 22:54] VITALS: BP 136/92
== END 2018-06-13 23:15 | disposition home or self-care (01) ==
LOC: ED 19:43 → TRG 19:43 → EDSTATUS 20:07 → ED 23:15
DX: O26.892 Other specified pregnancy related conditions, second trimester (principal); O10.912 Unspecified pre-existing hypertension complicating pregnancy, second trimester; R07.89 Other chest pain; Z3A.17 17 weeks gestation of pregnancy
CPT/HCPCS: 36415; 76805; 80048; 81001; 84484; 85025; 93005; 93010

== ENCOUNTER 2018-06-24 12:40 | Outpatient (CLI) | payer MEDICAID | END 2018-06-24 12:41 | disposition home or self-care (01) | LOC: VAS 12:40 | PROVIDERS: ATTEND Obstetrics & Gynecology Maternal & Fetal Medicine | DX: R22.43 Localized swelling, mass and lump, lower limb, bilateral (principal); I10 Essential (primary) hypertension; Z90.49 Acquired absence of other specified parts of digestive tract | CPT/HCPCS: 93970 ==

== ENCOUNTER 2018-10-30 19:27 | Outpatient (CLI) | payer MEDICAID ==
[2018-10-30 21:34] LABS: Bacteria,Urine 1+ /HPF (Negative); Bilirubin,Urine NEG (Negative); Blood,Urine NEG (Negative); Color,Urine Yellow (Yellow); Hyaline Casts,Urine 1 /LPF; Protein,Urine <15 mg/dL mg/dL (Negative); Urobilinogen,Urine < 2.0 mg/dL (<2.0)
[2018-10-30 22:21] LABS: Hematocrit 36.5 % (30.3-42.9); Hemoglobin 12.1 gm/dl (10.1-14.3); Mean Corpuscular HGB Conc 33 % (30-34); Mean Corpuscular Volume 84 fl (79-97); Platelet Count 165 K/mm3 (140-440); Red Blood Count 4.33 M/mm3 (3.65-5.03); Red Cell Distribution Width 15.2 % (13.2-15.2)
[2018-10-30 22:41] LABS: Alanine Aminotransferase 5 units/L (7-56); Uric Acid 4.3 mg/dL (3.5-7.6)
[2018-10-30 23:17] VITALS: BP 100/57
[2018-10-30] MEDS ORDERED: PERCOCET 5/325 PO ONE (23:38)
== END 2018-10-30 23:52 | disposition home or self-care (01) ==
LOC: TRG 19:27
PROVIDERS: ATTEND Obstetrics & Gynecology
DX: O26.893 Other specified pregnancy related conditions, third trimester (principal); O13.3 Gestational [pregnancy-induced] hypertension without significant proteinuria, third trimester; R51 Headache; Z3A.37 37 weeks gestation of pregnancy; Z90.49 Acquired absence of other specified parts of digestive tract
CPT/HCPCS: 36415; 59025; 81001; 82565; 83615; 84450; 84460; 84550; 85027

== ENCOUNTER 2018-11-01 14:04 | Outpatient (CLI) | payer MEDICAID ==
[2018-11-01 15:03] LABS: Hematocrit 37.7 % (30.3-42.9); Hemoglobin 12.9 gm/dl (10.1-14.3); Mean Corpuscular HGB Conc 34 % (30-34); Mean Corpuscular Volume 83 fl (79-97); Platelet Count 174 K/mm3 (140-440); Red Blood Count 4.53 M/mm3 (3.65-5.03); Red Cell Distribution Width 15.4 % (13.2-15.2)
[2018-11-01 15:08] LABS: Bilirubin,Urine NEG (Negative); Blood,Urine NEG (Negative); Color,Urine Yellow (Yellow); Mucus,Urine FEW /HPF
[2018-11-01 15:17] LABS: Alanine Aminotransferase 6 units/L (7-56)
[2018-11-01 15:31] LABS: Uric Acid 5.1 mg/dL (3.5-7.6)
[2018-11-01] MEDS ORDERED: LACTATED RINGERS 500 ML IV ONE (15:31)
[2018-11-03 12:18] VITALS: BP 120/71
== END 2018-11-01 15:41 | disposition home or self-care (01) ==
LOC: TRG 14:04
PROVIDERS: ATTEND Obstetrics & Gynecology
DX: O47.03 False labor before 37 completed weeks of gestation, third trimester (principal); O13.3 Gestational [pregnancy-induced] hypertension without significant proteinuria, third trimester; Z3A.37 37 weeks gestation of pregnancy; Z90.49 Acquired absence of other specified parts of digestive tract
CPT/HCPCS: 36415; 81001; 82565; 83615; 84450; 84460; 84550; 85027; J7120

== ENCOUNTER 2018-11-06 12:31 | Inpatient (IN) | payer MEDICAID ==
[2018-11-06] MEDS ORDERED: MINERAL OIL PO PRN (14:41)
[2018-11-06] MEDS ORDERED: NARCAN 0.4 MG/1 ML IV PRN (14:41)
[2018-11-06] MEDS ORDERED: STADOL IV PRN (14:41)
[2018-11-06] MEDS ORDERED: ZOFRAN IV PRN (14:41)
[2018-11-06] MEDS ORDERED: BRETHINE SUB-Q PRN (14:57)
[2018-11-06] MEDS ORDERED: PITOCin/NS 30 UNIT/500ML 30 UNITS/500 ML BAG IV SCH (15:00)
[2018-11-06] MEDS ORDERED: PITOCin/NS 20 UNIT/1000ML DRIP 20 UNITS/1,000 ML BAG IV SCH (15:00)
--- NOTE | 2018-11-06 15:00 | History and Physical Report ---
History of Present Illness Date of examination: 11/06/18 Date of admission: 11/06/18 12:31 Chief complaint: Presents from [facility] with a recommendation for delivery due to mild preeclampsia. Complains of HAs and visual changes x 1 month History of present illness: Early entry to care at [facility], co-managed with [facility] and [employer] due to elevated blood pressures. Known hx of HSV II; taking Valtrex suppressive therapy. 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 Family/Genetic History: diabetes (MGM, PGM, MGF), hypertension (parents), cancer (Colon CA: PGF) Social history: no significant social history, single - Obstetrical History Expected Date of Delivery: 11/19/18 Actual Gestation: 38 Week(s) 1 Day(s) : 2 Para: 1 Hx # Term Pregnancies: 1 Number of Living Children: 1 #1 Gender: Female year: Birthweight: 2.948 kg Method of Delivery: Vaginal Gestational age at delivery: 37 Complications: other (induced for preeclampsia) Medications and Allergies Allergies Allergy/AdvReac Type Severity Reaction Status Date / Time ibuprofen [From Motrin] Allergy Swelling Verified 09/14/18 10:20 Penicillins Allergy Swelling Verified 09/14/18 10:20 Sulfa (Sulfonamide Allergy Hives Verified 09/14/18 10:20 Antibiotics) Home Medications Medication Instructions Recorded Confirmed Last Taken Type Pnv No.95/Ferrous Fum/Folic AC 1 each PO DAILY 09/14/18 10/30/18 10/30/18 History [Prenavite Tablet] Acetaminophen [Tylenol] 325 mg PO PRN 10/30/18 10/30/18 10/30/18 19:00 History Aspirin [Aspirin BABY CHEW TAB] 81 mg PO QDAY 10/30/18 10/30/18 10/30/18 History Active Meds: Active Medications Butorphanol Tartrate (Stadol) 2 mg IV Q2H PRN PRN Reason: Pain , Severe (7-10) Ephedrine Sulfate (Ephedrine Sulfate) 10 mg IV Q2M PRN PRN Reason: Hypotension Lactated Ringer's (Lactated Ringers) 1,000 mls @ 125 mls/hr IV DIRECT VANI Oxytocin/Sodium Chloride (Pitocin/Ns 20 Unit/1000ml Drip) 20 units in 1,000 mls @ 125 mls/hr IV DIRECT VANI Oxytocin/Sodium Chloride (Pitocin/Ns 30 Unit/500ml) 30 units in 500 mls @ 4 mls/hr IV TITR VANI; Protocol Lidocaine (Xylocaine 2%) 20 ml INFILTRATI ONCE ONE Stop: 11/06/18 14:42 Mineral Oil (Mineral Oil) 30 ml PO QHS PRN PRN Reason: Constipation Naloxone HCl (Narcan 0.4 Mg/1 Ml) 0.1 mg IV Q2MIN PRN PRN Reason: Res Rate </= 8 or 02 SAT < 92% Ondansetron HCl (Zofran) 4 mg IV Q8H PRN PRN Reason: Nausea And Vomiting Terbutaline Sulfate (Brethine) 0.25 mg SUB-Q ONCE PRN PRN Reason: Hyperstimulation/Hypertonicity Terbutaline Sulfate (Brethine) 0.25 mg IVP ONCE PRN PRN Reason: Hyperstimulation/Hypertonicity Review of Systems All systems: negative - Vital Signs Vital signs: Vital Signs Pulse BP 108 H 120/69 11/06/18 13:46 11/06/18 13:46 Temp Pulse Resp BP Pulse Ox 96.3 F L 108 H 120/69 11/06/18 14:35 11/06/18 13:46 11/06/18 13:46 - Physical Exam Breasts: Positive: normal Cardiovascular: Regular rate Lungs: Positive: Clear to auscultation Abdomen: Positive: normal appearance, soft Genitourinary (Female): Positive: normal external genitalia, normal perenium Vagina: Positive: normal moisture Uterus: Positive: enlarged Anus/Rectum: Positive: normal perianal skin Extremities: Positive: normal - Obstetrical FHR: category 1 Uterine Contraction Monitor Mode: External Cervical Dilatation: 3 (Vtx, Intact) Cervical Effacement Percentage: 60 station: -2 Uterine Contraction Pattern: Absent Uterine Tone Measurement Phase: Resting Results All other labs normal. Assessment and Plan A: IUP @ 38 1/7 Weeks Category I Tracing Mild Preeclampsia GBS Negative P: Admit to L&D per Routine Orders Pitocin Induction Draw PIH Labs
[2018-11-06 15:21] LABS: Hemoglobin 12.6 gm/dl (10.1-14.3); Mean Corpuscular HGB Conc 33 % (30-34); Mean Corpuscular Volume 84 fl (79-97); Platelet Count 181 K/mm3 (140-440); Red Blood Count 4.51 M/mm3 (3.65-5.03); Red Cell Distribution Width 15.3 % (13.2-15.2)
[2018-11-06] MEDS: LACTATED RINGERS 1,000 ML IV SCH ×2 (15:25→23:16)
[2018-11-06 15:30] LABS: Alanine Aminotransferase 6 units/L (7-56); Uric Acid 5.2 mg/dL (3.5-7.6)
[2018-11-06] MEDS ORDERED: BRETHINE IVP PRN (15:41)
[2018-11-06] MEDS ORDERED: XYLOCAINE 2% INFILTRATI ONE (16:00)
[2018-11-06] MEDS ORDERED: NARCAN 2 MG/2 ML IV PRN (21:10)
[2018-11-06] MEDS ORDERED: fentaNYL-BUPIV 2 MCG/ML-0.125% 200 MCG/100 ML BAG EPIDURAL SCH (22:00)
--- NOTE | 2018-11-06 22:24 | Progress Note ---
Assessment and Plan A: IUP @ 38 1/7 Weeks Category I Tracing Mild Preeclampsia GBS Negative P: AROM Continue Pitocin Augmentation Prepare for Epidural Subjective - Subjective Date of service: 11/06/18 Interval history: Early entry to care at [facility], co-managed with [facility] and [employer] due to elevated blood pressures. Known hx of HSV II; taking Valtrex suppressive therapy. Patient reports: contractions (Requesting Epidural) Objective - Vital Signs Vital Signs: Vital Signs - 12hr 11/06/18 11/06/18 13:46 14:35 Temperature 96.3 F L Pulse Rate 108 H Blood Pressure 120/69 - Exam Breasts: normal Cardiovascular: Regular rate Lungs: Clear to auscultation Abdomen: Present: normal appearance, soft, normal bowel sounds Uterus: Present: normal, firm, fundal height above umbilicus FHR: category 1 Uterine Contraction Monitor Mode: External Cervical Dilatation: 5 (Clear fluid upon AROM ) Cervical Effacement Percentage: 80 station: -2 Uterine Contraction Pattern: Regular Uterine Tone Measurement Phase: Resting Uterine Contraction Intensity: Moderate Extremities: normal - Labs Labs: Abnormal Labs 11/06/18 11/06/18 14:00 14:00 RDW 15.3 H Creatinine 0.5 L ALT 6 L Lactate Dehydrogenase 273 H Laboratory Results - last 24 hr 11/06/18 11/06/18 11/06/18 14:00 14:00 14:00 WBC 9.5 RBC 4.51 Hgb 12.6 Hct 38.0 MCV 84 MCH 28 MCHC 33 RDW 15.3 H Plt Count 181 Creatinine 0.5 L Estimated GFR > 60 Uric Acid 5.2 AST 15 ALT 6 L Lactate Dehydrogenase 273 H Blood Type O POSITIVE Antibody Screen Negative
[2018-11-06] MEDS ORDERED: SUBLIMAZE ONE (22:27)
[2018-11-06] MEDS ORDERED: SENSORCAINE/DEXTR 0.75-8.25% INFILTRATI ONE (22:27)
[2018-11-06] MEDS ORDERED: XYLOCAINE 2%/ EPI 1:200,000 INFILTRATI ONE (23:09)
[2018-11-06] MEDS ORDERED: XYLOCAINE MPF 2% ONE (23:10)
[2018-11-07] MEDS ORDERED: TUCKS PAD TP PRN (00:59)
[2018-11-07] MEDS ORDERED: DULCOLAX PR PRN (00:59)
[2018-11-07] MEDS ORDERED: LANSINOH TP PRN (00:59)
[2018-11-07] MEDS ORDERED: BENADRYL PO PRN (00:59)
[2018-11-07] MEDS ORDERED: SODIUM CHLORIDE FLUSH SYRINGE 10 ML IV PRN (01:00)
[2018-11-07] MEDS ORDERED: IBUPROFEN PO SCH (01:00)
--- NOTE | 2018-11-07 01:06 | Procedure Note ---
OB Delivery Note - Delivery Date of Delivery: 11/07/18 (0030) Surgeon: MILO KURTZ Estimated blood loss: <100cc - Vaginal Delivery presentation: vertex Delivery position: OA Intrapartum events: none Delivery induction: oxytocin Delivery augmentation: rupture of membranes, pitocin Delivery monitor: external FHT, external uterine Route of delivery: Delivery placenta: spontaneous Delivery cord: 3 umbilical vessels Episiotomy: none Delivery laceration: none Anesthesia: epidural Delivery comments: of a live 7'3 male infant over a intact perineum under epidural anesthesia with Apgars of 8 and 9 at 0030 on 11/07/2018. directly to maternal abd/chest, skin to skin contact. Spontaneous delivery of placenta complete and intact with Saab side presenting at 0042. Fundus is firm and midline located 4 below the U. Lochia is scant. Delayed cord clamping and cutting; Cord cut by the Father of the Baby. Cord blood collected; placenta discarded. - A at 1 minute: 8 at 5 minutes: 9 Infant Gender: Male (7'3)
[2018-11-07] MEDS ORDERED: PITOCin/NS 20 UNIT/1000ML DRIP 20,000 MILLIUNITS/1,000 ML BAG IV ONE (02:52)
[2018-11-07] MEDS: NORCO 5/325 PO PRN ×3 (03:28→22:04)
[2018-11-07] MEDS: PRENATAL VITAMIN PO SCH (12:27)
[2018-11-07 14:54] LABS: Hematocrit 35.7 % (30.3-42.9); Hemoglobin 11.9 gm/dl (10.1-14.3)
[2018-11-08] MEDS ORDERED: BOOSTRIX IM ONE (06:00)
--- NOTE | 2018-11-08 10:08 | Progress Note ---
Assessment and Plan - Patient Problems (1) Status post normal vaginal delivery Current Visit: Yes Status: Acute Plan to address problem: PPD 2 - stable Continue routine PP orders Discharge to home today Follow-up at [facility] in 2 weeks for control consult (leslie BTL) and in 6 weeks for exam Subjective - Subjective Date of service: 11/08/18 Principal diagnosis: PPD #2; s/p Patient reports: appetite normal, voiding normally, pain well controlled, ambulating normally, no dizzy ambulation [place]: doing well, other (breast and bottle feeding) Objective - Vital Signs Latest vital signs: Vital Signs Temp Pulse Resp BP 11/08/18 07:40 98 F 64 20 119/80 11/08/18 00:30 98.5 F 83 18 107/65 11/07/18 22:04 18 11/07/18 16:00 98 F 70 18 119/72 11/07/18 12:39 98 F 70 18 126/68 Intake and Output 11/07/18 11/08/18 11/08/18 23:59 07:59 15:59 Intake Total 820 480 Output Total 400 Balance 420 480 Intake: Oral 320 120 Intake, Free Water 360 Other 500 Output: Urine 400 Void 400 Other: Intake, Other Source Saline Solution Total, Intake Amount 500 120 Total, Output Amount 400 # Voids Void 3 - Exam Cardiovascular: Present: Regular rate Lungs: Present: Clear to auscultation Abdomen: Present: normal appearance, soft Vulva: both: normal Uterus: Present: normal, firm, fundal height below umbilicus Extremities: Present: normal Comments: scant lochia
--- NOTE | 2018-11-08 10:13 | Discharge Summary ---
Providers - Providers Date of Admission: 11/06/18 12:31 Date of discharge: 11/08/18 Attending physician: SRINIVAS TERRY Primary care physician: SRINIVAS TERRY Hospitalization Reason for admission: induction of labor, IUP at term Delivery: Episiotomy: none Laceration: none Other procedures: none complications: none Discharge diagnosis: IUP at term delivered Kinde baby: male Hospital course: Uncomplicated Condition at discharge: Stable Disposition: DC-01 TO HOME OR SELFCARE - Discharge Diagnoses (1) Status post normal vaginal delivery Status: Acute Plan - Provider Discharge Summary Activity: routine, no sex for 6 weeks, no heavy lifting 4 weeks, no strenuous exercise Diet: routine Instructions: routine Additional instructions: [] Smoking cessation referral if applicable(refer to patient education folder for contact #) [] Refer to [facility]'s [facility] Booklet Call your doctor immediately for: * Fever > 100.5 * Heavy vaginal bleeding ( >1 pad per hour) * Severe persistent headache * Shortness of breath * Reddened, hot, painful area to leg or breast * Drainage or odor from incision. * Keep incision clean and dry at all times and follow doctor's instructions regarding bathing/showering - Follow up plan Follow up: SRINIVAS TERRY MD [Primary Care Provider] - 14 Days (Follow-up at [facility] in 2 weeks for control consult (desires BTL) and in 6 weeks for exam)
[2018-11-08] MEDS: NORCO 5/325 PO PRN (13:29)
[2018-11-08] MEDS: PRENATAL VITAMIN PO SCH (13:29)
[2018-11-09] MEDS: NORCO 5/325 PO PRN ×2 (13:05→21:15)
[2018-11-09 22:12] VITALS: BP 133/82
== END 2018-11-09 22:04 | disposition home or self-care (01) | DRG 774 ==
LOC: LD 12:31 → OB 11-07 02:32
PROVIDERS: ADMIT Obstetrics & Gynecology; ATTEND Obstetrics & Gynecology
PROC: 10907ZC Drainage of Amniotic Fluid, Therapeutic from Products of Conception, Via Natural or Artificial Opening (ICD-10-PCS; 2018-11-06)
PROC: 10E0XZZ Delivery of Products of Conception, External Approach (ICD-10-PCS; principal; 2018-11-07)
PROC: 3E033VJ Introduction of Other Hormone into Peripheral Vein, Percutaneous Approach (ICD-10-PCS; 2018-11-07)
PROC: 3E0R3BZ Introduction of Anesthetic Agent into Spinal Canal, Percutaneous Approach (ICD-10-PCS; 2018-11-07)
PROC: 00HU33Z Insertion of Infusion Device into Spinal Canal, Percutaneous Approach (ICD-10-PCS; 2018-11-07)
DX: O14.04 Mild to moderate pre-eclampsia, complicating childbirth (principal); Z3A.38 38 weeks gestation of pregnancy; Z37.0 Single live birth; Z83.3 Family history of diabetes mellitus; Z82.49 Family history of ischemic heart disease and other diseases of the circulatory system; Z85.038 Personal history of other malignant neoplasm of large intestine; Z88.0 Allergy status to penicillin; Z88.2 Allergy status to sulfonamides; Z79.82 Long term (current) use of aspirin; Z79.899 Other long term (current) drug therapy
CPT/HCPCS: 36415; 82565; 83615; 84450; 84460; 84550; 85014; 85018; 85027; 86592; 86850; 86900; 86901; G0378; A6250; J0595; J2590; J3010; J7120

== ENCOUNTER 2019-08-30 14:57 | Emergency (ER) | payer MEDICAID ==
[2019-08-30 15:03] VITALS: BP 158/98
== END 2019-08-30 18:10 | disposition left against medical advice (07) ==
LOC: ED 14:57
DX: H92.01 Otalgia, right ear (principal); Z53.21 Procedure and treatment not carried out due to patient leaving prior to being seen by health care provider

== ENCOUNTER 2022-04-09 18:40 | Emergency (ER) | payer BC, MEDICAID ==
[2022-04-09] MEDS: MORPHINE 4 MG/1 ML INJ IV ONE (21:49)
[2022-04-09 22:34] LABS: Basophils # (Auto) 0.1 K/mm3 (0.0-0.1); Basophils % (Auto) 0.5 % (0.0-1.8); Eosinophils # (Auto) 0.2 K/mm3 (0.0-0.4); Eosinophils % (Auto) 1.6 % (0.0-4.3); Hematocrit 43.3 % (30.3-42.9); Hemoglobin 14.5 gm/dl (10.1-14.3); Lymphocytes # (Auto) 3.2 K/mm3 (1.2-5.4); Lymphocytes % (Auto) 34.4 % (13.4-35.0); Mean Corpuscular HGB Conc 34 % (30-34); Mean Corpuscular Volume 83 fl (79-97); Monocytes # (Auto) 0.5 K/mm3 (0.0-0.8); Platelet Count 222 K/mm3 (140-440); Red Blood Count 5.19 M/mm3 (3.65-5.03); Red Cell Distribution Width 14.6 % (13.2-15.2)
[2022-04-09 22:35] LABS: Alanine Aminotransferase 13 units/L (7-56); Albumin 4.3 g/dL (3.9-5); Blood Urea Nitrogen 7 mg/dL (7-17); Calcium 10.1 mg/dL (8.4-10.2); Hemolysis Index 8
[2022-04-09 22:37] LABS: BUN/Creatinine Ratio 12
[2022-04-09 22:45] LABS: Bilirubin,Urine NEG (Negative); Blood,Urine NEG (Negative); Color,Urine Amber (Yellow)
[2022-04-09 23:05] LABS: Bacteria,Urine 1+ /HPF (Negative); Mucus,Urine 2+ /HPF
[2022-04-09] MEDS: NITROFURANTOIN MONOHYD/M-CRYST 100 MG CAP PO ONE (23:55)
--- NOTE | 2022-04-10 00:30 | Emergency Department Report ---
ED Abdominal Pain HPI - General Chief Complaint: Abdominal Pain Stated Complaint: 11WKS ABD PAIN Source: patient Mode of arrival: Ambulatory Limitations: No Limitations - History of Present Illness Initial Comments: Patient is a A0 26-year-old -[place] female with a history of hypertension who presents to the ED with complaint of acute onset persistent diffuse lower abdominal pain and low back pain that radiates to the right leg for the last 1 week, worse in the last 3 days. Patient states that the pain is constant and persistent and adds that she has not taken any medications for pain. Patient states that the pain is especially worse with movement. Patient denies fall, traumatic injury, heavy lifting, fever, chills, dysuria, urinary frequency and urgency, chest pain or shortness of breath, fever, chills, nausea, vomiting, vaginal bleeding, vaginal discharge or headache, numbness and tingling or weakness of lower extremities bilaterally. MD Complaint: abdominal pain (diffuse lower), flank pain (bilateral), other (lo wer back pain that radiates to the right leg) -: week(s) (1) Location: LLQ, RLQ, suprapubic, L flank, R flank, bilateral flank Radiation: LLQ, RLQ, suprapubic, L flank, R flank, bilateral flank, back (lower) Migration to: no migration Severity: severe Severity scale (0 -10): 8 Quality: cramping, sharp Consistency: constant Improves With: rest Worsens With: movement Context: other (Approximately 11 weeks gestation) Associated Symptoms: denies other symptoms. denies: nausea, vomiting, diarrhea, fever, chills, constipation, dysuria, hematemesis, hematochezia, melena, hematuria, anorexia - Related Data Home Medications Medication Instructions Recorded Confirmed Last Taken Pnv No.95/Ferrous Fum/Folic AC 1 each PO DAILY 09/14/18 10/30/18 10/30/18 [Prenavite Tablet] Acetaminophen [Tylenol] 325 mg PO PRN 10/30/18 10/30/18 10/30/18 19:00 Aspirin [Aspirin BABY CHEW TAB] 81 mg PO QDAY 10/30/18 10/30/18 10/30/18 Previous Rx's Medication Instructions Recorded Last Taken Type Acetaminophen/Codeine [Tylenol 1 tab PO Q8H PRN #12 tab 10/22/19 Unknown Rx /Codeine # 3 tab] Acetaminophen [Tylenol] 500 mg PO Q6HR PRN #40 tablet 04/10/22 Unknown Rx Nitrofurantoin Crenshaw/M-Cryst 100 mg PO Q12HR #14 capsule 04/10/22 Unknown Rx [Macrobid CAP] Ondansetron [Zofran Odt] 4 mg PO Q8HR PRN #20 tab.rapdis 04/10/22 Unknown Rx methOCARBAMOL [Robaxin TAB] 750 mg PO Q8H PRN #30 tab 04/10/22 Unknown Rx miSOPROStoL [Cytotec] 400 mcg PO Q4H #12 tablet 04/10/22 Unknown Rx traMADoL [Ultram] 50 mg PO Q6HR PRN #15 tablet 04/10/22 Unknown Rx Allergies Allergy/AdvReac Type Severity Reaction Status Date / Time ibuprofen [From Motrin] Allergy Swelling Verified 09/14/18 10:20 Penicillins Allergy Swelling Verified 09/14/18 10:20 Sulfa (Sulfonamide Allergy Hives Verified 09/14/18 10:20 Antibiotics) ED Review of Systems ROS: Stated complaint: 11WKS ABD PAIN Other details as noted in HPI Constitutional: denies: chills, fever Eyes: denies: eye pain, eye discharge, vision change ENT: denies: ear pain, throat pain Respiratory: denies: cough, shortness of breath, wheezing Cardiovascular: denies: chest pain, palpitations Endocrine: no symptoms reported Gastrointestinal: abdominal pain (Diffuse lower abdominal pain). denies: nausea, vomiting, diarrhea Genitourinary: denies: urgency, dysuria, discharge Musculoskeletal: back pain (lower back pain that radiates to the right leg). denies: joint swelling, arthralgia Skin: denies: rash, lesions Neurological: denies: headache, weakness, paresthesias Psychiatric: denies: anxiety, depression Hematological/Lymphatic: denies: easy bleeding, easy bruising ED Past Medical Hx - Past Medical History Hx Hypertension: Yes Hx Congestive Heart Failure: No Hx Diabetes: No Hx Deep Vein Thrombosis: No Hx Renal Disease: No Hx Sickle Cell Disease: No Hx Seizures: No Hx Asthma: No Hx COPD: No Hx HIV: No - Surgical History Hx Cholecystectomy: Yes Additional Surgical History: tonsillectomy - Social History Smoking Status: Never Smoker Substance Use Type: None - Medications Home Medications: Home Medications Medication Instructions Recorded Confirmed Last Taken Type Pnv No.95/Ferrous Fum/Folic AC 1 each PO DAILY 09/14/18 10/30/18 10/30/18 History [Prenavite Tablet] Acetaminophen [Tylenol] 325 mg PO PRN 10/30/18 10/30/18 10/30/18 19:00 History Aspirin [Aspirin BABY CHEW TAB] 81 mg PO QDAY 10/30/18 10/30/18 10/30/18 History Acetaminophen/Codeine [Tylenol 1 tab PO Q8H PRN #12 tab 10/22/19 Unknown Rx /Codeine # 3 tab] Acetaminophen [Tylenol] 500 mg PO Q6HR PRN #40 tablet 04/10/22 Unknown Rx Nitrofurantoin Crenshaw/M-Cryst 100 mg PO Q12HR #14 capsule 04/10/22 Unknown Rx [Macrobid CAP] Ondansetron [Zofran Odt] 4 mg PO Q8HR PRN #20 tab.rapdis 04/10/22 Unknown Rx methOCARBAMOL [Robaxin TAB] 750 mg PO Q8H PRN #30 tab 04/10/22 Unknown Rx miSOPROStoL [Cytotec] 400 mcg PO Q4H #12 tablet 04/10/22 Unknown Rx traMADoL [Ultram] 50 mg PO Q6HR PRN #15 tablet 04/10/22 Unknown Rx ED Physical Exam - General Limitations: No Limitations General appearance: alert, in no apparent distress - Head Head exam: Present: atraumatic, normocephalic, normal inspection - Eye Eye exam: Present: normal appearance, PERRL, EOMI Pupils: Present: normal accommodation - ENT ENT exam: Present: normal exam, normal orophraynx, mucous membranes moist, TM's normal bilaterally, normal external ear exam - Neck Neck exam: Present: normal inspection, full ROM. Absent: tenderness - Respiratory Respiratory exam: Present: normal lung sounds bilaterally. Absent: respiratory distress, wheezes, rales, rhonchi, chest wall tenderness, accessory muscle use, decreased breath sounds - Cardiovascular Cardiovascular Exam: Present: regular rate, normal rhythm, normal heart sounds. Absent: systolic murmur, diastolic murmur, rubs, gallop - GI/Abdominal GI/Abdominal exam: Present: soft, tenderness (Palpable diffuse lower abdominal tenderness), normal bowel sounds. Absent: guarding, rebound, hyperactive bowel sounds, organomegaly, mass - Bi-manual exam: Present: other (Pelvic exam deferred at this time) - Extremities Exam Extremities exam: Present: normal inspection, full ROM, normal capillary refill. Absent: tenderness - Back Exam Back exam: Present: normal inspection, full ROM, tenderness (Palpable lumbosacral paraspinal musculoskeletal tenderness), muscle spasm, paraspinal tenderness. Absent: CVA tenderness (R), CVA tenderness (L), vertebral tenderness - Neurological Exam Neurological exam: Present: alert, oriented X3, CN II-XII intact, normal gait, reflexes normal - Psychiatric Psychiatric exam: Present: normal affect, normal mood - Skin Skin exam: Present: warm, dry, intact, normal color. Absent: rash ED Course Vital Signs 04/09/22 20:45 Temperature 98.3 F Pulse Rate 72 Respiratory 14 Rate Blood Pressure 151/93 [Right] - Reevaluation(s) Reevaluation #1: 04/10/22 03:30 Paged and discussed the patient's case with the [employer] physician on-call Dr. [facility]'s line department supervisor Larry Horacio Luke who advised that the patient be discharged home on pain medication ibuprofen 800mg Q8H and Cytotec 400mg q4h for 1 day, and to follow-up with the office in 3 days for further reevaluation with repeat serial hCG and transvaginal ultrasound. ED Medical Decision Making - Lab Data Result diagrams: 04/09/22 22:00 04/09/22 22:00 - Radiology Data Radiology results: report reviewed, image reviewed [address] [address] Ultrasound Report Signed Patient: JACINTA NICHOLS MR#: [id number] : 1995 Acct:[id number] Age/Sex: 26 / F ADM Date: 04/09/22 Loc: ED Attending Dr: Ordering Physician: AAKASH MOLINA Date of Service: 04/09/22 Procedure(s): US OB <= 14 weeks fetus Accession Number(s): [id number] cc: AAKASH MOLINA ULTRASOUND PELVIS INDICATION: PELVIC PAIN, 11 weeks gestation. TECHNIQUE: Transabdominal. Duplex Color Doppler used: Yes. COMPARISON: None available FINDINGS: Uterus: Present. Size: 11.5 x 5.9 x 5.9 cm. Endometrial complex: Intrauterine dated 7 weeks 5 days by ultrasound. No heart tones. Mass lesions: None. Additional findings: None. Right Ovary -- Normal. Blood flow: Normal. Cyst or mass: None. Left Ovary-- Normal. Blood flow: Normal. Cyst or mass: None. Urinary Bladder: Normal. Free Fluid: None. Additional Findings: None. IMPRESSION: Intrauterine demise dated 7 weeks 5 days. Signer Name: Cruz Coombs MD Signed: 04/10/2022 12:56 AM Workstation Name: [id number] Transcribed By: ES Dictated By: Cruz Coombs MD Electronically Authenticated By: Cruz Coombs MD Signed Date/Time: 04/10/2255 DD/ TD/TT: - Medical Decision Making This is a A0 26-year-old -[place] female with a history of hypertension who presents to the ED with complaint of acute onset persistent diffuse lower abdominal pain and low back pain that radiates to the right leg for the last 1 week, worse in the last 3 days. Patient states that the pain is constant and persistent and adds that she has not taken any medications for pain. Patient states that the pain is especially worse with movement. In the ED, patient is alert and oriented x3 and is not in any distress. Patient appears to be in pain. Patient was treated for pain in the ED and lab test results [place] [id number] and significant urinary tract infection in urinalysis. Patient also received oral antibiotics in the ED for her urinary tract infection. Transvaginal ultrasound showed intrauterine dated 7 weeks 5 days by ultrasound, no heart tones consistent with intrauterine demise. This findings were discussed with the ED attending physician Dr. Somers who advised the [employer] physician on-call Dr. Saint [facility] the paged for further direction of this patient. I therefore paged and discussed the patient's case with the [employer] physician Dr. [facility] and discussed the patient's case with the doctor at [facility] nurse line department supervisor Ms. Horacio Luke who advised that the patient be discharged home with the prescription of Cytotec 400 mcg every 4 hours for 1 day and that the patient be referred to their clinic for follow-up in 3 days for serial hCG and repeat transvaginal ultrasound at the office. This plan was discussed with the patient who agreed with the plan. Patient was therefore discharged home on pain medications and a prescription of Cytotec as advised by the nurse line department supervisor. Patient was otherwise advised return to the ED immediately if symptoms get worse - Differential Diagnosis UTI; sciatica; muscle spasm; ovarian cyst; back muscle strain Critical care attestation.: If time is entered above; I have spent that time in minutes in the direct care of this critically ill patient, excluding procedure time. ED Disposition Clinical Impression: Acute urinary tract infection, Acute abdominal pain, Spasm of muscle of lower back, demise before 20 weeks with retention of fetus Acute low back pain with right-sided sciatica Qualifiers: Back pain laterality: right Qualified Code(s): M54.41 - Lumbago with sciatica, right side Disposition: HOME / SELF CARE / HOMELESS Is pt being admited?: No Condition: Stable Instructions: Abdominal Pain (ED), Muscle Cramps and Spasms, [id number], Pr egnancy and Urinary Tract Infection, Abdominal Pain During , [id number], Urinary Tract Infection, Adult, [id number], Sciatica, [id number], Demise Additional Instructions: Take medication with food, drink plenty of fluids, follow-up with the [employer] physician Dr. Saint Wiseman as advised. Ensure that you follow-up within 3 days for reevaluation and further serial hCG quant studies repeat and transvaginal ultrasound. Return to the ED immediately if your symptoms get worse. Prescriptions: Acetaminophen [Tylenol] 500 mg PO Q6HR PRN #40 tablet PRN Reason: Pain , Severe (7-10) miSOPROStoL [Cytotec] 400 mcg PO Q4H #12 tablet Nitrofurantoin Crenshaw/M-Cryst [Macrobid CAP] 100 mg PO Q12HR #14 capsule methOCARBAMOL [Robaxin TAB] 750 mg PO Q8H PRN #30 tab PRN Reason: Muscle Spasm traMADoL [Ultram] 50 mg PO Q6HR PRN #15 tablet PRN Reason: Pain Ondansetron [Zofran Odt] 4 mg PO Q8HR PRN #20 tab.rapdis PRN Reason: Nausea Referrals: ST ESE,MUKUND L, MD [Staff Physician] - 3-5 Days Forms: Work/School Release Form(ED) Time of Disposition: 03:36 Print Language: MALAGASY
--- NOTE | 2022-04-10 01:01 | Ultrasound Report ---
ULTRASOUND PELVIS INDICATION: PELVIC PAIN, 11 weeks gestation. TECHNIQUE: Transabdominal. Duplex Color Doppler used: Yes. COMPARISON: None available FINDINGS: Uterus: Present. Size: 11.5 x 5.9 x 5.9 cm. Endometrial complex: Intrauterine dated 7 weeks 5 days by ultrasound. No heart tones. Mass lesions: None. Additional findings: None. Right Ovary -- Normal. Blood flow: Normal. Cyst or mass: None. Left Ovary-- Normal. Blood flow: Normal. Cyst or mass: None. Urinary Bladder: Normal. Free Fluid: None. Additional Findings: None. IMPRESSION: Intrauterine demise dated 7 weeks 5 days. Signer Name: Cruz Coombs MD Signed: 04/10/2022 12:56 AM Workstation Name: [id number]
[2022-04-10] MEDS: HYDROmorphone 1 MG/1 ML INJ IV ONE (02:11)
[2022-04-10] MEDS: ONDANSETRON 4 MG/2 ML INJ IV ONE (02:12)
[2022-04-10 04:32] VITALS: BP 146/87
== END 2022-04-10 04:34 | disposition home or self-care (01) ==
LOC: ED 18:40
DX: O36.4XX0 Maternal care for intrauterine death, not applicable or unspecified (principal); N39.0 Urinary tract infection, site not specified; R10.30 Lower abdominal pain, unspecified; M62.830 Muscle spasm of back; I10 Essential (primary) hypertension; Z3A.11 11 weeks gestation of pregnancy; Z90.49 Acquired absence of other specified parts of digestive tract; Z88.1 Allergy status to other antibiotic agents; Z88.0 Allergy status to penicillin; Z88.6 Allergy status to analgesic agent; Z79.899 Other long term (current) drug therapy
CPT/HCPCS: 36415; 76801; 80053; 81001; 84702; 85025; 96374; 96375; 99284; J1170; J2270; J2405; 87086